=== PATIENT | female | born 1960 | race Caucasian/White ===

== ENCOUNTER 2016-11-23 16:51 | Emergency (ER) | payer BC, OTHER ==
[~2016-11-23] VITALS: Ht 170.2 cm; Wt 86.2 kg
[2016-11-23] MEDS: ALBUTEROL SULF 2.5 MG/0.5ML(0.5%) NEB SOLN NEB ONE (17:45)
[2016-11-23] MEDS: diphenhdrAMINE HCL 50 MG/1 ML VL IV ONE (20:13)
[2016-11-23] MEDS: SODIUM CHLORIDE 0.9% 1,000 ML IV ONE (20:13)
[2016-11-23] MEDS: methylPREDNISolone SOD SUCC 125 MG/2 ML VL IV ONE (20:13)
[2016-11-23] MEDS: EPINEPHrine HCL 1 MG/1 ML AMP IM ONE (20:13)
[2016-11-23 21:15] VITALS: BP 128/73
== END 2016-11-23 22:03 | disposition home or self-care (01) ==
LOC: EDBD 16:51 → ER 16:59
DX: T63.441A Toxic effect of venom of bees, accidental (unintentional), initial encounter (principal); E11.9 Type 2 diabetes mellitus without complications; I10 Essential (primary) hypertension; Z88.1 Allergy status to other antibiotic agents; Y92.89 Other specified places as the place of occurrence of the external cause; Y93.89 Activity, other specified; Y99.8 Other external cause status
CPT/HCPCS: 93005; 94640; 96361; 96372; 96374; 96375; 99284; J0171; J1200; J2930; J7030